=== PATIENT | male | born 2000 | race Caucasian/White ===

== ENCOUNTER 2021-06-27 10:03 | Emergency (ER) | payer BC ==
--- OUTSIDE RECORDS SUMMARY | 2021-06-27 10:08 | XMS REPORT | Continuity of Care Document ---
:2000 Author Organization [facility] t Address [address] [place] [address] Care Team Providers Name Role Phone KOSCI Attending Clinician Unavailable [facility] Admitting Clinician Unavailable Problems This patient has no known problems. Allergies, Adverse Reactions, Alerts This patient has no known allergies or adverse reactions. Social History Smoking Status Start Date Stop Date Source Never smoker [facility] ([facility]) Medications Ordered Filled Start Stop Current Ordering Indication Dosage Frequency Signature Comments Components Source Medication Medication Date Date Medication? Clinician (SIG) Name Name Dicyclomine Dicyclomine Yes 20mg QID [facility] Hydrochlori Hydrochlori L ukes - de 20 MG de 20 MG [facility] Oral Tablet Oral Tablet l (LUF/LI V/SA) Ondansetron Ondansetron Yes nausea and 4mg QID [facility] Vital Signs Vital Name Observation Time Observation Value Comments Source Body Temperature 2018-04-22 06:37:[address] [facility] ([facility]) Pulse Rate 2018-04-22 06:37:00 82 /min [facility] ([facility]) Respiratory Rate 2018-04-22 06:37:00 12 /min [facility] ([facility]) O2% BldC Oximetry 2018-04-22 06:37:00 98 % [facility] ([facility]) BP Systolic 2018-04-22 06:37:00 138 mm[Hg] [facility] ([facility]) BP Diastolic 2018-04-22 06:37:00 77 mm[Hg] [facility] ([facility]) Height 2018-04-22 06:37:[address] [facility] (LUF/[place]) Weight Measured 2018-04-22 06:37:00 136 lbs SUPRIYA antunez [facility] (LUF/[facility]) BMI (Body Mass Index) 2018-04-22 06:37:00 21.3 [facility] (LUF/[place]) Procedures This patient has no known procedures. Encounters Start End Encounter Admission Attending Care Care Encounter Source Date/Time Date/Time Type Type Clinicians Facility Department ID 2018-04-22 2018-04-22 Inpatient E [place], [place] [id number] [facility] 06:26:00 08:55:00 [facility] [address] [facility] [address] (LUF[address], V/[place]) [place] [address] Results Test Description Test Time Test Comments Results Result Comments Source ED2 CBC 2018-06-27 16:24:00 Test Item Value Reference Range Interpretation Comme nts WBC (test code = WBC) 10.6 10\S\9/L 3.5-10.0 H LY% (test code = LY) 9.3 % 15.0-50.0 L MIDS% (test code = MIDS) 3.2 % 2.0-15.0 Granulocytes % (test code = GRA%) 87.5 % 35.0-80.0 H Lymphocytes (test code = LYMPH) 0.9 10\S\9/L 0.5-5.0 MID (test code = MID) 0.4 10\S\9/L 0.1-1.5 Granulocytes (test code = GRAN) 9.3 10\S\9/L 1.2-8.0 H RBC (test code = RBC) 5.17 10\S\12/L 3.50-5.50 Hemoglobin (test code = HGB) 15.5 gm/dl 11.5-16.5 Hematocrit (test code = HCT) 43.7 % 35.0-55.0 MCV (test code = MCV) 84.5 fL 75.0-100.0 MCH (test code = MCH) 30.1 pg 25.0-35.0 MCHC (test code = MCHC) 35.6 gm/dl 31.0-38.0 RDW % (test code = RDW%) 13.0 % 11.0-16.0 Platelet (test code = PLT) 183 10\S\9/L 100-400 MPV (test code = MPV) 8.2 fL 8.0-11.0 A ED2 [id number] 16:24:00 Test Item Value Reference Range Interpretation Comments Sodium (test code = NA) 139 mmol/l 128-145 Potassium (test code = K) 3.6 mmol/l 3.6-5.1 CO2 (test code = CO2) 29 mmol/l 18-33 Chloride (test code = CL) 108 mmol/l 98-108 Glucose (test code = GLU) 110 mg/dl 73-118 Calcium (test code = CALC) 9.3 mg/dl 8.0-10.3 BUN (test code = BUN) 8 mg/dl 7-22 Creatinine (test code = CREA) 0.7 mg/dl 0.6-1.2 Alkaline Phos (test code = ALKP) 64 U/L 42-141 ALT (SGPT) (test code = ALT) 22 U/L 10-47 AST (SGOT) (test code = AST) 30 U/L 11-38 Total Bilirubin (test code = TBIL) 0.7 mg/dl 0.2-1.6 Albumin (test code = ALB) 4.2 gm/dl 3.3-5.5 T Protein (test code = TP) 7.8 gm/dl 6.4-8.1 ED2 URINE [id number] 07:46:00 Test Item Value Reference Range Interpretation Comments Color (test code = UCOLR) Yellow Lt. Yellow A Clarity (test code = UCLAR) Clear Glucose (test code = UGLUC) NEGATIVE NEGATIVE N Bilirubin (test code = UBILI) Small NEGATIVE A Ketones (test code = UKET) TRACE NEGATIVE A Specific [place] (test code = 1.025 1.005-1.030 A USPGR) Blood (test code = UBLD) Trace-Lysed NEGATIVE A PH (test code = UPH) 6.0 4.5-8.0 A Protein (test code = UPROT) 30 NEGATIVE A Urobilinogen (test code = U UROB) 1.0 >0.2 A Nitrite (test code = UNITR) NEGATIVE NEGATIVE N Leukocyte Esterase (test code = NEGATIVE NEGATIVE N ULEUK) ED2 XR ABDOMEN 1 VIEW (KUB)2018-04-22 07:40:21Procedure: ED2 XR ABDOMEN 1 VIEW (KUB)Order Date: 04/22/2018 6:48 AMOrdering Provider: VIJAY Torresinical Indication: n/vComparison: NoneFindings:Mild retained stool within the colon.There is no bowel distention.There is no pneumoperitoneum.There are no suspicious calcifications.There is no skeletal abnormality.Impression:1. Mild retained stool within the colon.2. No bowel obstruction or pneumoperitoneum.3. Exam otherwise negative.This final report was electronically signed by Dr Anthony Rivers MD 04/22/20187:34 AMDictated By: ANTHONY RIVERSDate: 04/22/2018 07:34
--- NOTE | 2021-06-27 10:51 | RAD REPORT ---
EXAM DESCRIPTION: RAD - Hand Left 3 View - 06/27/2021 10:43 am CLINICAL HISTORY: PAIN COMPARISON: No comparisons FINDINGS: Mild soft tissue swelling affects the first finger. No acute fracture or dislocation.
--- NOTE | 2021-06-27 11:15 | EDPHYS ---
Physician Documentation [facility] Name: Shayan Stevens Age: 21 yrs Sex: Male : 2000 Arrival Date: 06/27/2021 Time: 10:08 Bed 10 Private MD: ED Physician Anant Dickson HPI: 06/27 11:13 This 21 yrs old Male presents to ER via Ambulatory with complaints of Finger Injury. kb 11:13 The patient or guardian reports injury, pain, swelling, tenderness. The complaints kb affect the left thumb. Context: The problem was sustained outdoors, resulted from a direct blow, hammer. Onset: The symptoms/episode began/occurred yesterday. Modifying factors: The symptoms are alleviated by nothing, the symptoms are aggravated by movement. Associated signs and symptoms: The patient has no apparent associated signs or symptoms. Severity of symptoms: At their worst the symptoms were mild, moderate, in the emergency department the symptoms are unchanged. The patient has not experienced similar symptoms in the past. The patient has not recently seen a physician. Accidentally hit thumb with a hammer yesterday. 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 Last tetanus immunization: up to date Flu vaccine is not up to date. - Social history:: Smoking status: Patient denies any tobacco usage or history of. ROS: 11:13 Constitutional: Negative for fever, chills, and weight loss. kb 11:13 MS/extremity: Positive for injury or acute deformity, abrasion, pain, swelling, tenderness, of the left thumb. Exam: 11:12 Constitutional: This is a well developed, well nourished patient who is awake, alert, kb and in no acute distress. Head/Face: Normocephalic, atraumatic. ENT: Moist Mucous membranes Respiratory: Respirations even and unlabored. No increased work of breathing. Talking in full sentences Neuro: Awake and alert, GCS 15, oriented to person, place, time, and situation. Moves all extremities. Normal gait. Psych: Awake, alert, with orientation to person, place and time. Behavior, mood, and affect are within normal limits. 11:12 Musculoskeletal/extremity: Extremities: grossly normal except: noted in the left thumb: abrasion, ecchymosis, pain, swelling, tenderness, ROM: limited active range of motion due to pain, in the left thumb, Circulation is intact in all extremities. Sensation intact. 11:12 Skin: injury, abrasion(s), very small abrasion noted, of the left thumb. Vital Signs: 10:18 BP 126 / 58; Pulse 88; Resp 17; Temp 97.4; Pulse Ox 100% ; Weight 59.87 kg; Height 5 ap3 ft. 7 in. (170.18 cm); 10:18 Body Mass Index 20.67 (59.87 kg, 170.18 cm) ap3 MDM: 10:20 Patient medically screened. kb 11:12 Data reviewed: vital signs, nurses notes. Data interpreted: Pulse oximetry: on room air kb is 100 %. Interpretation: normal. Counseling: I had a detailed discussion with the patient and/or guardian regarding: the historical points, exam findings, and any diagnostic results supporting the discharge/admit diagnosis, radiology results, the need for outpatient follow up, a family practitioner, to return to the emergency department if symptoms worsen or persist or if there are any questions or concerns that arise at home. 06/27 10:20 Order name: Hand Left 3 View XRAY; Complete Time: 10:53 kb Administered Medications: No medications were administered Disposition: 13:28 Co-signature as Attending Physician, Anant Dickson MD I agree with the assessment and kdr plan of care. Disposition Summary: 06/27/21 11:14 Discharge Ordered Location: Home kb Condition: Stable kb Diagnosis - Contusion of left thumb without damage to nail kb Followup: kb - With: Emergency Department - When: As needed - Reason: Worsening of condition Followup: kb - With: Private Physician - When: 2 - 3 days - Reason: Recheck today's complaints, Continuance of care, Re-evaluation by your physician Discharge Instructions: - Discharge Summary Sheet kb - Hand Contusion, [id number] kb Forms: - Medication Reconciliation Form kb - Thank You Letter kb - Antibiotic Education kb - Prescription Opioid Use kb Signatures: Dispatcher [employer] EDAubree Lopez FNP-C FNP-Ckb Anant Dickson MD MD kdr Qian Coppola, RN RN ap3
--- NOTE | 2021-06-27 11:15 | ER ---
Nurse's Notes [facility] Name: Shayan Stevens Age: 21 yrs Sex: Male : 2000 Arrival Date: 06/27/2021 Time: 10:08 Bed 10 Private MD: Diagnosis: Contusion of left thumb without damage to nail Presentation: 06/27 10:18 Chief complaint: Patient states: he hit his thumb with a hammer yesterday 06/26/2021. ap3 Coronavirus screen: At this time, the client does not indicate any symptoms associated with coronavirus-19. Ebola Screen: No symptoms or risks identified at this time. Initial Sepsis Screen: Does the patient meet any 2 criteria? No. Patient's initial sepsis screen is negative. Does the patient have a suspected source of infection? No. Patient's initial sepsis screen is negative. Risk Assessment: Do you want to hurt yourself or someone else? Patient reports no desire to harm self or others. Onset of symptoms was June 26, 2021. 10:18 Method Of Arrival: Ambulatory ap3 10:18 Acuity: LU 4 ap3 Triage Assessment: 10:21 General: Appears in no apparent distress. Behavior is calm, cooperative, appropriate ap3 for age. Pain: Complains of pain in left thumb Pain currently is 0 out of 10 on a pain scale. at worst was 10 out of 10 on a pain scale. Alleviated by rest, Aggravated by increased activity, weight bearing. Neuro: Level of Consciousness is awake, alert, obeys commands, Oriented to person, place, time, situation, Appropriate for age Gait is steady, Speech is normal. Cardiovascular: Patient's skin is warm and dry. Respiratory: Airway is patent. Musculoskeletal: Swelling present in left thumb. Injury Description: injury with hammer. 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 Last tetanus immunization: up to date Flu vaccine is not up to date. - Social history:: Smoking status: Patient denies any tobacco usage or history of. Screenin:22 Abuse screen: Denies threats or abuse. Nutritional screening: No deficits noted. ap3 Tuberculosis screening: No symptoms or risk factors identified. Fall Risk None identified. Assessment: 10:26 General: see triage assessment. ap3 Vital Signs: 10:18 BP 126 / 58; Pulse 88; Resp 17; Temp 97.4; Pulse Ox 100% ; Weight 59.87 kg; Height 5 ap3 ft. 7 in. (170.18 cm); 10:18 Body Mass Index 20.67 (59.87 kg, 170.18 cm) ap3 ED Course: 10:08 Patient arrived in ED. mr 10:20 Aub[facility]abtree [facility]C [facility] kb 10:20 Triage completed. ap3 10:21 Anant Dickson MD is Attending Physician. kb 10:23 Arm band placed on right wrist. ap3 10:23 Patient has correct armband on for positive identification. Bed in low position. Call ap3 light in reach. Pulse ox on. NIBP on. 10:26 Qian Coppola, RN is Primary Nurse. ap3 10:43 Hand Left 3 View XRAY In Process Unspecified. EDMS 11:20 No provider procedures requiring assistance completed. Patient did not have IV access ap3 during this emergency room visit. Administered Medications: No medications were administered Outcome: 11:14 Discharge ordered by . kb 11:20 Discharged to home ap3 11:20 Condition: good 11:20 Discharge instructions given to patient, Instructed on discharge instructions, follow up and referral plans. Demonstrated understanding of instructions, follow-up care. 11:21 Patient left the ED. ap3 Signatures: Dispatcher [employer] EDMS Aubree Crabtree FNP-C FNP-Ckb Kelly Portillo mr Qian Coppola, RN RN ap3
[2021-06-27 11:34] VITALS: BP 126/58; TEMP 97.4; O2SAT 100
== END 2021-06-27 11:21 | disposition home or self-care (01) ==
LOC: ER 10:03
DX: S60.012A Contusion of left thumb without damage to nail, initial encounter (principal); W22.8XXA Striking against or struck by other objects, initial encounter; Y92.89 Other specified places as the place of occurrence of the external cause
CPT/HCPCS: 99283

== ENCOUNTER 2023-12-01 15:25 | Emergency (ER) | payer BC ==
[2023-12-01] MEDS ORDERED: ONDANSETRON 4 MG/2 ML VIAL ONE (15:55)
[2023-12-01] MEDS ORDERED: NA CHLORIDE 0.9% 1,000 ML ONE (15:55)
[2023-12-01] MEDS ORDERED: ACETAMINOPHEN 325 MG TABLET ONE (15:55)
[2023-12-01] MEDS ORDERED: KETOROLAC 30 MG/ML INJ ONE (15:55)
[2023-12-01 16:18] LABS: Sqamous Epithelial None Seen /HPF (None Seen); Urine Bacteria <20 /HPF (<20); Urine Bilirubin NEGATIVE (Negative); Urine Blood 1+ (Negative); Urine Clarity Clear (Clear); Urine Color Yellow (Yellow); Urine Glucose NEGATIVE (Negative); Urine Ketones 4+ (Negative); Urine Microscopic Reflex YN ORDER UMIC; Urine Nitrite NEGATIVE (Negative); Urine Protein TRACE (Negative); Urine RBC <5 /HPF (None Seen); Urine Urobilinogen 1+ (Normal); Urine WBC <5 /HPF (<5); Urine pH 5.5 (5.0-7.0)
[2023-12-01 16:19] LABS: Urine Culture Reflex Order NOT NEEDED
[2023-12-01 16:23] LABS: SARS-CoV-2 Antigen CONTROL BLUE LINE VIS/BG OK
[2023-12-01 16:24] LABS: SARS-CoV-2 Antigen Rapid Res Negative (Negative)
[2023-12-01 16:26] LABS: Absolute Lymphocytes (CBC) 0.8 K/uL (0.7-4.9); Absolute Monocytes 0.9 K/uL (0.1-1.3); Absolute Neutrophil 10.7 K/uL (1.8-8.0); Basophils % 0.1 % (0-1.3); Hematocrit 40.2 % (39.6-49.0); Hemoglobin 13.8 g/dL (13.6-17.9); Lymphocytes % 6.4 % (15.3-44.8); MCH 29.8 pg (27.0-35.0); MCHC 34.3 g/dL (32.0-36.0); MCV 86.9 fL (80-100); MPV 8.3 fL (7.6-11.3); Neutrophils % 86.5 % (41.7-73.7); Nucleated Red Blood Cells % 0.1 % (0-0); Platelets 192 thou/uL (152-406); RBC Red Blood Cell Count 4.63 M/uL (4.33-5.43); Red Cell Distribution Width 13.1 % (12.1-15.2)
--- NOTE | 2023-12-01 16:38 | RAD REPORT ---
EXAM DESCRIPTION: CTAbdomen Pelvis W Contrast - 12/01/2023 4:30 pm CLINICAL HISTORY: Abdominal pain. left lower abdomen pain COMPARISON: <Comparisons> TECHNIQUE: Biphasic CT imaging of the abdomen and pelvis was performed with 100 ml non-ionic IV cont rast. All CT scans are performed using dose optimization technique as appropriate and may include automated exposure control or mA/KV adjustment according to patient size. FINDINGS: The lung bases are clear. The liver, spleen, pancreas, adrenal glands and kidneys are within normal limits. No bowel obstruction, free air, free fluid or abscess. The appendix is normal. No evidence of signi ficant lymphadenopathy. No suspicious bony findings. IMPRESSION: No acute intra-abdominal or pelvic finding.
[2023-12-01 16:42] LABS: Albumin 3.9 g/dL (3.4-5.0); Albumin/Globulin Ratio 1.1 (1.1-1.8); Anion Gap 9.4 mEq/L (5.0-15.0); Globulin 3.5 g/dL (2.3-3.5); Potassium 3.4 mEq/L (3.5-5.1); Protein, Total 7.4 g/dL (6.4-8.2)
[2023-12-01] MEDS ORDERED: POTASSIUM 25 MEQ EFFERV TAB ONE (17:25)
--- NOTE | 2023-12-01 19:00 | EDPHYS ---
Physician Documentation [facility] Name: Shayan Stevens Age: 23 yrs Sex: Male : 2000 Arrival Date: 12/01/2023 Time: 15:25 Bed External Waiting Private MD: ED Physician Jagdish John HPI: 11/30 16:00 This 23 yrs old Male presents to ER via Ambulatory with complaints of Abdominal Pain, cp Fever. 16:00 The patient presents with abdominal pain. cp 16:00 Onset: The symptoms/episode began/occurred this morning. Associated signs and symptoms: cp Pertinent positives: nausea and vomiting, fever, Pertinent negatives: constipation, diarrhea, dysuria, testicular pain. 16:00 The symptoms are described as waxing/waning. Severity of pain: in the emergency cp department the pain is unchanged despite home interventions. 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 - Infectious Disease History:: Denies. - Social history:: Smoking status: Patient denies any tobacco usage or history of. ROS: 16:05 Constitutional: Positive for body aches, fever, Negative for poor PO intake, cp 16:05 Eyes: Negative for injury, pain, redness, and discharge, cp 16:05 ENT: Negative for drainage from ear(s), ear pain, sore throat, difficulty swallowing, difficulty handling secretions, 16:05 Cardiovascular: Negative for chest pain, palpitations, 16:05 Respiratory: Negative for cough, shortness of breath, wheezing, 16:05 Abdomen/GI: Positive for abdominal pain, nausea and vomiting, Negative for diarrhea, constipation, black/tarry stool, rectal bleeding, 16:05 Neuro: Negative for altered mental status, dizziness, headache, weakness, 16:05 All other systems are negative, Exam: 16:10 Constitutional: The patient appears in no acute distress, alert, awake, non-toxic, well cp developed, well nourished, febrile, 16:10 Head/Face: Normocephalic, atraumatic. cp 16:10 Eyes: Periorbital structures: appear normal, Conjunctiva: normal, no exudate, no injection, Sclera: no appreciated abnormality, Lids and lashes: appear normal, bilaterally, 16:10 ENT: External ear(s): are unremarkable, Nose: is normal, Mouth: Lips: moist, Oral mucosa: moist, Posterior pharynx: Airway: no evidence of obstruction, patent, 16:10 Neck: ROM/movement: pain, is not appreciated, limited range of motion, is not appreciated, Meningeal signs: are not present, 16:10 Chest/axilla: Inspection: normal, 16:10 Cardiovascular: Rate: tachycardic, Rhythm: regular, 16:10 Respiratory: the patient does not display signs of respiratory distress, Respirations: normal, no use of accessory muscles, no retractions, labored breathing, is not present, Breath sounds: are clear throughout, no decreased breath sounds, no stridor, no wheezing, 16:10 Abdomen/GI: Inspection: abdomen appears normal, Bowel sounds: active, all quadrants, Palpation: soft, in all quadrants, moderate abdominal tenderness, in the left lower quadrant, rebound tenderness, is not appreciated, involuntary guarding, is not appreciated, 16:10 Back: CVA tenderness, is absent, Vital Signs: 15:30 BP 124 / 58; Pulse 106; Resp 18; Temp 103(O); Pulse Ox 97% ; Weight 61.87 kg; Height 5 db ft. 7 in. ; 16:51 BP 118 / 56; Pulse 92; Resp 16; Temp 99; Pulse Ox 99% ; ko1 19:22 BP 113 / 51; Pulse 72; Resp 16; Temp 98.4(O); Pulse Ox 97% ; me1 15:30 Body Mass Index 21.36 (61.87 kg, 170.18 cm) db MDM: 15:30 Patient medically screened. 16:00 Differential diagnosis: appendicitis, diverticulitis, gastritis, non-specific abd pain, cp Ureterolithiasis, urinary tract infection, colitis. 19:00 Data reviewed: vital signs, nurses notes, lab test result(s), radiologic studies, CT cp scan, and as a result, I will discharge patient. 19:00 I considered the following discharge prescriptions or medication management in the emergency department Medications were administered in the Emergency Department. See MAR. Response to treatment: the patient's symptoms have markedly improved after treatment. Special discussion: Based on the patient's Hx, exam, and Dx evaluation, there is no indication for emergent surgery or inpatient Tx. It is understood by the patient/guardian that if the Sx's persist or worsen they need to return immediately for re-evaluation. 11/30 15:50 Order name: CBC with Diff; Complete Time: 17:05 cp 11/30 17:05 Interpretation: Normal except: WBC 12.40; STEPHANIE% 86.5; LYM% 6.4; NEUT A 10.7. cp 11/30 15:50 Order name: CMP; Complete Time: 17:05 cp 11/30 17:05 Interpretation: Normal except: NA 135; K 3.4; AST 14. cp 11/30 15:50 Order name: Lipase; Complete Time: 17:05 cp 11/30 15:50 Order name: Urinalysis w/ reflexes; Complete Time: 17:05 cp 11/30 17:05 Interpretation: Normal except: UKET 4+; UBLD 1+; UPROT TRACE; UUROB 1+. cp 11/30 15:50 Order name: Influenza Screen (a \T\ B); Complete Time: 17:05 cp 11/30 15:50 Order name: SARS RAPID; Complete Time: 17:05 cp 11/30 15:50 Order name: CT Abd/Pelvis - IV Contrast Only; Complete Time: 17:05 cp 11/30 15:50 Order name: IV Saline Lock; Complete Time: 16:16 cp 11/30 15:50 Order name: Labs collected and sent; Complete Time: 16:16 cp Administered Medications: 16:04 Drug: Acetaminophen PO 650 mg PO once Route: PO; ko1 16:50 Follow up: Response: No adverse reaction ko1 16:19 Drug: NS 0.9% IV 1000 ml IV at 1 bolus Per protocol; 1000 mL bolus Route: IV; Rate: 1 ko1 bolus; Site: right antecubital; 16:49 Follow up: Response: No adverse reaction; IV Status: Completed infusion; IV Intake: ko1 1000ml 16:19 Drug: TORadol - Ketorolac IVP 15 mg IVP once Route: IVP; Site: right antecubital; ko1 16:34 Follow up: Response: No adverse reaction ko1 16:19 Drug: Ondansetron IVP 4 mg IVP once; over 2 minutes Route: IVP; Site: right antecubital;ko1 16:34 Follow up: Response: No adverse reaction ko1 17:27 Drug: Potassium PO Effervescent Tablet 25 mEq PO once; dissolve in 4 ounces of water or ko1 juice Route: PO; 18:39 Follow up: Response: No adverse reaction ko1 Disposition Summary: 12/01/23 19:00 Discharge Ordered Notes: Location: Home cp Problem: new cp Symptoms: have improved cp Condition: Stable cp Diagnosis - Fever presenting with conditions classified elsewhere cp - Lower abdominal pain, unspecified cp - Nausea cp Followup: cp - With: Private Physician - When: 1 - 2 days - Reason: Worsening of condition Discharge Instructions: - Discharge Summary Sheet cp - Abdominal Pain, Adult cp - Fever, Adult cp - Nausea, Adult cp Forms: - Medication Reconciliation Form cp - Antibiotic Education cp - Prescription Opioid Use cp - Patient Portal Instructions cp - Leadership Thank You Letter cp Prescriptions: - Ibuprofen 800 mg Oral Tablet - take 1 tablet ORAL route every 8 hours As needed take with food; 30 tablet; cp Refills: 0, Product Selection Permitted - Zofran 4 mg Oral Tablet - take 1 tablet ORAL route every 12 hours As needed; 20 tablet; Refills: 0, cp Product Selection Permitted Addendum: 12/04/2023 07:43 Co-signature as Attending Physician, Jagdish John MD I agree with the assessment and c temple plan of care. Signatures: Dispatcher [employer] Jagdish Mast MD MD cha Page, Corey, PA PA cp Laura Youngblood, RN RN ko1 Irina Siu RN RN db Corrections: (The following items were deleted from the chart) 11/30 15:51 15:50 CBC+H.LAB.BRZ ordered. EDWI EDWI 15:51 15:50 COMPREHENSIVE METABOLIC PANEL+C.LAB.BRZ ordered. EDWI EDWI 15:51 15:50 LIPASE+C.LAB.BRZ ordered. EDWI EDWI 15:51 15:50 Urinalysis+U.LAB.BRZ ordered. EDWI EDWI 15:51 15:50 Influenza Screen (A \T\ B)+BA.LAB.BRZ ordered. EDWI EDWI 15:51 15:50 SARS-COV-2 Antigen Rapid+I.LAB.BRZ ordered. EDWI EDWI 12/01 18:48 11/30 16:00 The patient presents with abdominal pain in the lower abdomen, cp cp
--- NOTE | 2023-12-01 19:00 | ER ---
Nurse's Notes [facility] Name: Shayan Stevens Age: 23 yrs Sex: Male : 2000 Arrival Date: 12/01/2023 Time: 15:25 Bed External Waiting Private MD: Diagnosis: Fever presenting with conditions classified elsewhere;Lower abdominal pain, unspecified;Nausea Presentation: 11/30 15:30 Chief complaint: Patient states: MIDDLE UPPER LEFT ABD PAIN. STATES STARTED THIS AM db WITH SEVERE INTERMITTENT PAIN WITH N/V. STATES TOOK TYLENOL TODAY AT 0930. FEVER STARTED LAST NIGHT. Coronavirus screen: Client denies travel out of the [place] in the last 14 days. At this time, the client does not indicate any symptoms associated with coronavirus-19. Ebola Screen: Patient negative for fever greater than or equal to 101.5 degrees Fahrenheit, and additional compatible Ebola Virus Disease symptoms Patient denies exposure to infectious person. Patient denies travel to an Ebola-affected area in the 21 days before illness onset. No symptoms or risks identified at this time. Initial Sepsis Screen: Does the patient meet any 2 criteria? Temp <36.0*C (96.8*F)) or > 38.3*C (100.9*F). HR > 90 bpm. Does the patient have a suspected source of infection? No. Patient's initial sepsis screen is negative. Risk Assessment: Do you want to hurt yourself or someone else? Patient reports no desire to harm self or others. Onset of symptoms was December 01, 2023. 15:30 Method Of Arrival: Ambulatory db 15:30 Acuity: LU 2 db Triage Assessment: 15:34 General: Appears in no apparent distress. comfortable, Behavior is calm, cooperative. db Pain: Complains of pain in abdomen. Neuro: Level of Consciousness is awake, alert, obeys commands, Oriented to person, place, time, situation, Speech is normal. Respiratory: Airway is patent Respiratory effort is even, unlabored, Respiratory pattern is regular, symmetrical. GI: Abdomen is flat, non-distended, Reports upper abdominal pain, nausea, vomiting. 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 - Infectious Disease History:: Denies. - Social history:: Smoking status: Patient denies any tobacco usage or history of. Screenin:19 [facility] ED Fall Risk Assessment (Adult) History of falling in the last 3 months, ko1 including since admission No falls in past 3 months (0 pts) Confusion or Disorientation No (0 pts) Intoxicated or Sedated No (0 pts) Impaired Gait No (0 pts) Mobility Assist Device Used No (0 pt) Altered Elimination No (0 pt) Score/Fall Risk Level 0 - 2 = Low Risk Oriented to surroundings, Maintained a safe environment, Educated pt \T\ family on fall prevention, incl call for assistance when getting out of bed, Assessed \T\ reinforced patient's understanding of fall precautions, Provided non-skid footwear, Hourly rounding (assess needs \T\ fall precautionary measures) done. Abuse screen: Denies threats or abuse. Denies injuries from another. Nutritional screening: No deficits noted. Tuberculosis screening: No symptoms or risk factors identified. Assessment: 16:19 General: Appears ill, slender, Behavior is calm, cooperative, appropriate for age. ko1 Pain: Complains of pain in abdomen. Neuro: No deficits noted. Cardiovascular: No deficits noted. Respiratory: No deficits noted. GI: Bowel sounds present X 4 quads. Abd is soft and non tender X 4 quads. : No deficits noted. EENT: No deficits noted. Derm: No deficits noted. Musculoskeletal: No deficits noted. 20:20 General: Patient departed at 19:25. . me1 Vital Signs: 15:30 BP 124 / 58; Pulse 106; Resp 18; Temp 103(O); Pulse Ox 97% ; Weight 61.87 kg; Height 5 db ft. 7 in. ; 16:51 BP 118 / 56; Pulse 92; Resp 16; Temp 99; Pulse Ox 99% ; ko1 19:22 BP 113 / 51; Pulse 72; Resp 16; Temp 98.4(O); Pulse Ox 97% ; me1 15:30 Body Mass Index 21.36 (61.87 kg, 170.18 cm) db ED Course: 15:27 Patient arrived in ED. im 15:30 Jagdish Nelson PA is PHCP. cp 15:30 Jagdish John MD is Attending Physician. cp 15:34 Triage completed. db 15:34 Arm band placed on. db 15:37 Laura Youngblood, RN is Primary Nurse. ko1 16:03 SARS RAPID Sent. ko1 16:03 Influenza Screen (a \T\ B) Sent. ko1 16:04 Urinalysis w/ reflexes Sent. ko1 16:16 CBC with Diff Sent. ko1 16:16 CMP Sent. ko1 16:16 Lipase Sent. ko1 16:19 Patient has correct armband on for positive identification. Placed in gown. Bed in low ko1 position. Call light in reach. Side rails up X 1. Provided Education on: labs, meds, call light. Pulse ox on. NIBP on. Door closed. Noise minimized. Lights dimmed. Warm blanket given. Pillow given. Assisted to bathroom. 16:19 No provider procedures requiring assistance completed. Initial lab(s) drawn, by tn, ko1 sent to lab. Urine collected: clean catch specimen, clear, miki colored, COVID swab sent to lab. Flu and/or RSV swab sent to lab. Inserted saline lock: 20 gauge in right antecubital area, using aseptic technique. Blood collected. 16:31 CT Abd/Pelvis - IV Contrast Only In Process Unspecified. EDMS 18:51 Primary Nurse role handed off by Laura Youngblood, CHAD ko1 19:21 Kelsey Portillo, CHAD is Primary Nurse. me1 19:28 IV discontinued, intact, bleeding controlled, No redness/swelling at site. Pressure me1 dressing applied. Administered Medications: 16:04 Drug: Acetaminophen PO 650 mg PO once Route: PO; ko1 16:50 Follow up: Response: No adverse reaction ko1 16:19 Drug: NS 0.9% IV 1000 ml IV at 1 bolus Per protocol; 1000 mL bolus Route: IV; Rate: 1 ko1 bolus; Site: right antecubital; 16:49 Follow up: Response: No adverse reaction; IV Status: Completed infusion; IV Intake: ko1 1000ml 16:19 Drug: TORadol - Ketorolac IVP 15 mg IVP once Route: IVP; Site: right antecubital; ko1 16:34 Follow up: Response: No adverse reaction ko1 16:19 Drug: Ondansetron IVP 4 mg IVP once; over 2 minutes Route: IVP; Site: right antecubital;ko1 16:34 Follow up: Response: No adverse reaction ko1 17:27 Drug: Potassium PO Effervescent Tablet 25 mEq PO once; dissolve in 4 ounces of water or ko1 juice Route: PO; 18:39 Follow up: Response: No adverse reaction ko1 Medication: 16:19 VIS not applicable for this client. ko1 Intake: 16:49 IV: 1000ml; Total: 1000ml. ko1 Outcome: 19:00 Discharge ordered by MD. cp 19:28 Discharged to home ambulatory, with significant other, me1 19:28 Condition: stable 19:28 Discharge instructions given to patient, significant other, Instructed on discharge instructions, follow up and referral plans. medication usage, Demonstrated understanding of instructions, follow-up care, medications, Prescriptions given X 2, 20:20 Patient left the ED. me1 Signatures: Dispatcher [employer] EDMS Jagdish Nelson PA PA cp Oliver, Kathy, RN RN ko1 Irina Siu RN RN Elisa Simon Michelle, RN RN me1
[2023-12-01 21:27] VITALS: BP 113/51; TEMP 98.4; O2SAT 97
== END 2023-12-01 20:20 | disposition home or self-care (01) ==
LOC: ER 15:25
DX: R50.9 Fever, unspecified (principal); R10.32 Left lower quadrant pain; R11.0 Nausea; Z11.52 Encounter for screening for COVID-19
CPT/HCPCS: 85025; 81001; 36415; 83690; 80053; 87804 ×2; 74177; 96375; 96374; 99284; 87811; Q9967; J2405; J7030